=== PATIENT | female | born 1985 | race Caucasian/White ===

== ENCOUNTER 2017-09-02 12:42 | Emergency (ER) | payer OTHER ==
[~2017-09-02] VITALS: Ht 162.6 cm; Wt 59.0 kg
[~2017-09-02 12:42] MED LIST: CIPROFLOXACIN500 M1 PO; FLAGYL500 M1 PO; IBUPROFEN 400400 M1 PO; LEVAQUIN 500 M500 MG PO; NAPROSYN500 MG PO; NOHOMEMEDICATIONS; NORCO 5-325 TA1 EACH PO; NORFLEX100 MG PO; PENICILLIN V P500 MG PO; PENICILLIN VK500 MG PO; PERCOCET 5-3251 EACH PO; PYRIDIUM200 MG PO; ZOFRAN ODT4 MG PO
[2017-09-02 12:52] VITALS: BP 124/67
[2017-09-02] MEDS ORDERED: MOBIC15 MG PO (14:34)
== END 2017-09-02 15:11 | disposition home or self-care (01) ==
LOC: ER 12:42
DX: S20.212A Contusion of left front wall of thorax, initial encounter (principal); F17.210 Nicotine dependence, cigarettes, uncomplicated; F10.99 Alcohol use, unspecified with unspecified alcohol-induced disorder; Z88.5 Allergy status to narcotic agent; Z88.8 Allergy status to other drugs, medicaments and biological substances; X58.XXXA Exposure to other specified factors, initial encounter; Y93.89 Activity, other specified; Y92.89 Other specified places as the place of occurrence of the external cause; Y99.8 Other external cause status

== ENCOUNTER 2021-03-17 17:28 | Emergency (ER) | payer OTHER ==
[~2021-03-17] VITALS: Ht 165.1 cm; Wt 54.4 kg
[~2021-03-17 17:28] MED LIST changes: +MOBIC15 MG PO
[2021-03-17 18:26] LABS: ABSOLUTE NEUTROPHILS 3.2 thou/uL (1.4-8.2); BASOPHILS 0.3 % (0.0-2.0); EOSINOPHILS 1.1 % (0.0-3.0); HEMATOCRIT 36.9 % (37.0-47.0); LYMPHOCYTES 15.7 % (24.0-44.0); MCH 29.8 pg (26.0-34.0); MCHC 32.6 g/dL (28.0-37.0); MCV 91.3 fL (80.0-100.0); PLATELET COUNT 178 thou/uL (150-400); POLYS 72.9 % (36.0-66.0); RBC 4.04 mil/uL (4.20-5.00); RDW 13.5 % (10.5-14.5); WBC 4.4 thou/uL (4.0-11.0)
[2021-03-17 18:31] LABS: CALCIUM 8.2 mg/dL (8.5-10.1); CREATININE 0.6 mg/dL (0.6-1.0); POTASSIUM 3.7 mmol/L (3.5-5.1)
[2021-03-17 19:20] LABS: URINE BILIRUBIN NEGATIVE (Negative); URINE BLOOD NEGATIVE (Negative); URINE CLARITY SL CLOUDY; URINE COLOR YELLOW; URINE GLUCOSE-RANDOM* NEGATIVE (Negative); URINE KETONES NEGATIVE (Negative); URINE LEUKOCYTES-REFLEX NEGATIVE (Negative); URINE PROTEIN (DIPSTICK) NEGATIVE (Negative); URINE UROBILINOGEN 0.2 E.U./dl (0.2-1.0)
[2021-03-17 19:21] LABS: URINE NITRITE-REFLEX POSITIVE (Negative)
[2021-03-17] MEDS ORDERED: ATIVAN1 M1 PO ×2 (19:22→21:11)
[2021-03-17] MEDS ORDERED: ZOFRAN 4 MG ORAL4 MG PO ×2 (19:22→21:11)
[2021-03-17 19:28] LABS: AMP/METHAMP POSITIVE (Negative); BACTERIA-REFLEX >30 Many /HPF (None Seen); BARBITURATES Negative (Negative); BENZODIAZEPINES Negative (Negative); CASTS None Seen /LPF (None Seen); COCAINE Negative (Negative); CRYSTALS None Seen /LPF (None Seen); METHADONE Negative (Negative); MUCUS 0-3 Light strn/LPF (None Seen); OPIATES POSITIVE (Negative); PCP Negative (Negative); SQUAMOUS >10 Many /LPF (0-3); URINE RBC 1-2 Rare /HPF (NONE SEEN); URINE WBC-REFLEX 0-5 Rare /HPF (0-5)
[2021-03-17 20:10] VITALS: BP 103/54
--- NOTE | 2021-03-18 06:56 | EKG ---
[address] [address] ELECTROCARDIOGRAM REPORT Name: MARIUM MYLES [id number] Admission: 03/17/21 Attend Phys: Discharge: 03/17/21 Date of : 81 Report #: [id number] [facility] ED Test Date: 2021-03-17 Test Time: 18:24:45 Pat Name: MARIUM MYLES Department: Room: Gender: F [employer] Operator: jen whitney : 1985 Requested By: Patrick Yates Order Number: [id number] MD: Souleymane Curry Measurements Intervals [place] Rate: 109 P: 60 NV: 107 QRS: 65 QRSD: 100 T: 68 QT: 334 QTc: 450 Interpretive Statements Sinus tachycardia No previous ECG available for comparison Electronically Signed On 03-18-2021 6:56:26 CDT by Souleymane Curry [email or web address] <ELECTRONICALLY SIGNED> By: Souleymane Curry MD, [facility] 03/18/21 0656 1824 1824 Souleymane Curry MD, FACC /EPI
== END 2021-03-17 20:13 | disposition home or self-care (01) ==
LOC: ER 17:28
PROVIDERS: Nurse Practitioner
DX: F11.10 Opioid abuse, uncomplicated (principal); F17.210 Nicotine dependence, cigarettes, uncomplicated; Z88.8 Allergy status to other drugs, medicaments and biological substances

== ENCOUNTER 2021-03-22 13:48 | Emergency (ER) | payer OTHER ==
[~2021-03-22] VITALS: Ht 165.1 cm; Wt 54.4 kg
[~2021-03-22 13:48] MED LIST changes: +ATIVAN1 M1 PO; +MACROBID 100 M100 M1 PO; +ZOFRAN 4 MG ORAL4 MG PO
[2021-03-22 13:50] VITALS: BP 99/50
[2021-03-22] MEDS ORDERED: NOHOMEMEDICATIONS (13:53)
[2021-03-22] MEDS ORDERED: PROAIR HFA8.5 GM INH (14:47)
[2021-03-22] MEDS ORDERED: MEDROLDOSEPACK PO (14:47)
== END 2021-03-22 15:34 | disposition home or self-care (01) ==
LOC: ER 13:48
PROVIDERS: Nurse Practitioner
DX: U07.1 COVID-19 (principal); Z88.8 Allergy status to other drugs, medicaments and biological substances; F17.210 Nicotine dependence, cigarettes, uncomplicated

== ENCOUNTER 2021-03-26 00:14 | Emergency (ER) | payer OTHER ==
[~2021-03-26] VITALS: Ht 165.1 cm; Wt 54.4 kg
--- NOTE | ~2021-03-26 | EMS ---
[address] [address] EMS Patient Care Report Name: MARIUM MYLES Room #: DEP [facility] [place]#: [id number] Admission: 03/26/21 Attend Phys: Discharge: 03/26/21 Date of : 81 Report #: [id number] THIS REPORT FOR: //name// Report Transmitted: 03/29/2021 06:10 EMS Care Summary [place], [place]/[facility] Incident [id number] @ 03/25/2021 23:53 Incident Location [address] [place] [address] Patient MARIUM MYLES Female, 36 Years 1985 Patient Address [address] [place] [id number] Patient History IV Drug Use/Abuse,Novel Coronavirus (COVID-19), Patient Allergies Demerol, Patient Medications Unknown, Chief Complaint WITHDRAWAL Disposition Transported No Lights/[place] Dispatch Reason Sick Person Transported To [facility] Narrative M36 dispatched on a COVID positive PT. PT walked up to [facility] station 36. PT instructed to wait outside wearing mask while ambulance drove around building. 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 PT stated she tested positive for COVID two days ago. PT stated she had a rehab bed lined up, but the COVID diagnosis "screwed that up." PT stated last use of heroin was earlier [address] [address] EMS Patient Care Report Name: MARIUM MYLES Room #: DEP [facility]#: [id number] Admission: 03/26/21 Attend Phys: Discharge: 03/26/21 Date of : 81 Report #: [id number] today. PT stated "I haven't had a seizure today, but I have in the past when detoxing." PT walked to ambulance. PT provided new surgical mask. PT instructed to cover nose and mouth with surgical mask. PT sat on bench in ambulance. PT secured with seatbelts. PT denied shortness of breath. PT stated she had dry cough and body aches. PT vitals monitored during transport. PT report given. PT walked into ER without assistance. PT care and belongings transferred to ER staff at [facility] without incident. M36 placed back in service. Initial Vitals @00:00P: 112,R: 18,BP: 112/66,Pain: 4/10,GCS: 15,CO: 13,SpO2: 98,Revised Trauma: 12, @00:05P: 110,R: 18,Pain: 4/10,GCS: 15,SpO2: 98,Revised Trauma: 12, Assessments @00:01MENTAL:Person Oriented,Event Oriented,Time Oriented,Place Oriented,SKIN:Pale,HEENT:Neck/Airway: Other,LUNG SOUNDS:ABDOMEN:PELVIS//GI:EXTREMITIES:PULSE:Radial: 2+ Normal,NEURO:Seizures, Impression Substance abuse Timeline 23:53,Call Received 23:53,Dispatch Notified 23:53,Dispatched 23:54,En Route 23:54,On Scene 23:58,At Patient 23:59,Depart Scene 00:00,BP: 112/66 M,PULSE: 112,RR: 18 R,SPO2: 98 Ox,ETCO2: ,BG: ,PAIN: 4,GCS: 15, 00:04,At Destination 00:05,BP: 90/ M,PULSE: 110,RR: 18 R,SPO2: 98 Ox,ETCO2: ,BG: ,PAIN: 4,GCS: 15, 00:19,Call Closed Disclaimer v1.1 Copyright 2020 [employer] This EMS Care Summary contains data elements from the applicable legal record (which may be displayed differently). It is designed to provide pertinent information for the following purposes: continuity of care, clinical quality, and state data reporting. The complete legal record is available to ED staff and administrators of the receiving hospital in [employer]'s Patient Tracker. All data is provided "as is."
[~2021-03-26 00:14] MED LIST changes: +MEDROLDOSEPACK PO; +PROAIR HFA8.5 GM INH
[2021-03-26] MEDS ORDERED: ZOFRAN ODT4 MG PO (02:35)
[2021-03-26] MEDS ORDERED: ATIVAN0.5 M1 PO (03:13)
[2021-03-26 03:16] VITALS: BP 103/61
== END 2021-03-26 03:22 | disposition home or self-care (01) ==
LOC: ER 00:14
DX: F19.20 Other psychoactive substance dependence, uncomplicated (principal); F17.210 Nicotine dependence, cigarettes, uncomplicated; Z88.5 Allergy status to narcotic agent; Z88.8 Allergy status to other drugs, medicaments and biological substances

== ENCOUNTER 2021-06-02 19:48 | Emergency (ER) | payer OTHER ==
[~2021-06-02] VITALS: Ht 165.1 cm; Wt 45.4 kg
[~2021-06-02 19:48] MED LIST changes: +ATIVAN0.5 M1 PO
[2021-06-02 20:33] LABS: URINE BILIRUBIN NEGATIVE (Negative); URINE BLOOD NEGATIVE (Negative); URINE CLARITY SL CLOUDY; URINE COLOR YELLOW; URINE GLUCOSE-RANDOM* NEGATIVE (Negative); URINE KETONES NEGATIVE (Negative); URINE NITRITE-REFLEX NEGATIVE (Negative); URINE PROTEIN (DIPSTICK) NEGATIVE (Negative); URINE SPECIFIC GRAVITY 1.015 (1.005-1.035); URINE UROBILINOGEN 0.2 E.U./dl (0.2-1.0)
[2021-06-02 20:36] LABS: URINE LEUKOCYTES-REFLEX 1+ (Negative)
[2021-06-02 20:44] LABS: SSA (PROTEIN CONFIRMATORY) NEGATIVE (Negative)
[2021-06-02 20:50] LABS: AMP/METHAMP POSITIVE (Negative); BARBITURATES Negative (Negative); BENZODIAZEPINES Negative (Negative); COCAINE Negative (Negative); METHADONE Negative (Negative); OPIATES Negative (Negative); PCP Negative (Negative)
[2021-06-02 20:51] LABS: CASTS None Seen /LPF (None Seen); CRYSTALS None Seen /LPF (None Seen); SQUAMOUS >10 Many /LPF (0-3); URINE RBC 1-2 Rare /HPF (NONE SEEN); URINE WBC-REFLEX >25 Many /HPF (0-5)
[2021-06-02 20:58] LABS: ABSOLUTE NEUTROPHILS 3.8 thou/uL (1.4-8.2); BASOPHILS 0.4 % (0.0-2.0); EOSINOPHILS 1.8 % (0.0-3.0); HEMATOCRIT 40.4 % (37.0-47.0); HEMOGLOBIN 13.1 gm/dL (12.0-15.0); LYMPHOCYTES 19.7 % (24.0-44.0); MCH 28.7 pg (26.0-34.0); MCHC 32.5 g/dL (28.0-37.0); MCV 88.3 fL (80.0-100.0); MONOCYTES 5.4 % (1.0-8.0); PLATELET COUNT 215 thou/uL (150-400); POLYS 72.7 % (36.0-66.0); RBC 4.58 mil/uL (4.20-5.00); RDW 14.3 % (10.5-14.5); WBC 5.3 thou/uL (4.0-11.0)
[2021-06-02 21:08] LABS: CALCIUM 8.8 mg/dL (8.5-10.1); CREATININE 0.6 mg/dL (0.6-1.0); POTASSIUM 3.6 mmol/L (3.5-5.1)
[2021-06-02] MEDS ORDERED: METRONIDAZOLE500 M4 PO (22:46)
[2021-06-03 00:26] VITALS: BP 130/86
== END 2021-06-03 00:28 | disposition home or self-care (01) ==
LOC: ER 19:48
PROVIDERS: Emergency Medicine; Nurse Practitioner
DX: R45.851 Suicidal ideations (principal); Z20.822 Contact with and (suspected) exposure to COVID-19; A59.01 Trichomonal vulvovaginitis; F32.9 Major depressive disorder, single episode, unspecified; F19.139 Other psychoactive substance abuse with withdrawal, unspecified; F17.210 Nicotine dependence, cigarettes, uncomplicated; Z86.16 Personal history of COVID-19; Z88.6 Allergy status to analgesic agent; Z88.8 Allergy status to other drugs, medicaments and biological substances